=== PATIENT | male | born 1990 | race Two or more races ===

== ENCOUNTER 2016-06-08 21:54 | Emergency (ER) | payer SELFPAY ==
[~2016-06-08] VITALS: Ht 172.7 cm; Wt 93.0 kg
[~2016-06-08 21:54] MED LIST: ASPI325T70 PO; CEPH500C PO; CEPH500T PO; HYDR50TA PO; OXYC1TAB9 PO
[2016-06-08 22:38] LABS: BILIRUBIN,URINE NEGATIVE (NEG); GLUCOSE,URINE NEGATIVE (NEG); NITRITE,URINE NEGATIVE (NEG); PROTEIN,URINE NEGATIVE (NEG-TRACE); UROBILINOGEN,URINE 0.2 mg/dL (0.2 mg/dL)
[2016-06-08 22:49] LABS: BACTERIA,URINE 0 /HPF (0-FEW); RBC,URINE OCC /HPF (0-2); SQUAMOUS EPITHELIAL CELL,UR OCC /LPF; WBC,URINE 0 /HPF (0-4)
[2016-06-08 23:00] VITALS: BP 124/64
[2016-06-08] MEDS ORDERED: IBUP-1007 PO (23:34)
[2016-06-08] MEDS ORDERED: SULF1TAB24 PO (23:34)
--- NOTE | 2016-06-08 23:35 | PHYS DOC ---
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 Patient reports it has been intermittent in nature that increases whenever he moves or rotates his torso. Patient relates it secondary to a insect bite to his left upper back. Patient reports she's had pain and discomfort in that area and there is a red pustule noted in his left upper back. Patient denies any other past medical history. Patient has any hypertension diabetes liver longer kidney problems. Patient does smoke. Any medications. Patient has any fevers shakes chills nausea vomiting diarrhea chest pain or shortness of breath. Patient reports he does have difficulty with urination and he does have some dysuria. Patient denies any polyuria frequency. Patient has hematuria. Patient's physical exam is significant for tenderness to palpation to both lower flanks. Patient's reproducible pain with palpation as well as whenever he tries to sit up from the bed. Patient has pain with rotation of his torso patient is otherwise neurologically intact. Patient has no weaknesses upper or lower 70s. Patient has no loss of bowel or bladder function. Patient denies any perirectal or perineal paresthesias. This is a 25-year-old gentleman with likely mechanical back strain. Patient's urinalysis and a ER was negative for blood or infection. Patient be sent home with Bactrim to assist with coverage of the pustule and his left back as well as Motrin to assist him with his discomfort. Review of Systems Review of Systems Constitutional: Denies fever or chills [] Eyes: Denies change in visual acuity, redness, or eye pain [] HENT: Denies nasal congestion or sore throat [] All other review systems are negative except as documented in the history of present illness portion. Allergies Allergies Allergies Coded Allergies Type Severity Reaction Last Updated Verified No Known Drug Allergies 09/26/13 No Physical Exam Physical Exam Constitutional: Well developed, well nourished, no acute distress, non-toxic appearance. [] HENT: Normocephalic, atraumatic, bilateral external ears normal, oropharynx moist, no oral exudates, nose normal. [] Eyes: PERRLA, EOMI, conjunctiva normal, no discharge. [] Neck: Normal range of motion, no tenderness, supple, no stridor. [] Cardiovascular:Heart rate regular rhythm, no murmur [] Lungs & Thorax: Bilateral breath sounds clear to auscultation [] Abdomen: Bowel sounds normal, soft, no tenderness, no masses, no pulsatile masses. [] Skin: Warm, dry, no erythema, no rash. [] Extremities: No tenderness, no cyanosis, no clubbing, ROM intact, no edema. [] Neurologic: Alert and oriented X 3, normal motor function, normal sensory function, no focal deficits noted. [] Psychologic: Affect normal, judgement normal, mood normal. [] Current Patient Data Vital Signs Vital Signs Date Time Temp Pulse Resp B/P Pulse Ox O2 Delivery O2 Flow Rate FiO2 06/08/16 23:00 84 16 124/64 97 Room Air 06/08/16 22:00 98.4 98.4 Lab Values Laboratory Tests Test 06/08/16 22:20 Urine Collection Type Unknown Urine Color Yellow Urine Clarity Clear Urine pH 6.0 Urine Specific Shepherd >=1.030 Urine Protein Negativemg/dL (NEG-TRACE) Urine Glucose (UA) Negativemg/dL (NEG) Urine Ketones (Stick) Negativemg/dL (NEG) Urine Blood Negative (NEG) Urine Nitrite Negative (NEG) Urine Bilirubin Negative (NEG) Urine Urobilinogen Dipstick 0.2mg/dL (0.2 mg/dL) Urine Leukocyte Esterase Negative (NEG) Urine RBC Occ/HPF (0-2) Urine WBC 0/HPF (0-4) Urine Squamous Epithelial Cells Occ/LPF Urine Bacteria 0/HPF (0-FEW) Urine Hyaline Casts Occasional/HPF Urine Mucus Mod/LPF EKG EKG [] Radiology/Procedures Radiology/Procedures [] Course & Med Decision Making Course & Med Decision Making Pertinent Labs and Imaging studies reviewed. (See chart for details) [] Dragon Disclaimer Dragon Disclaimer This electronic medical record was generated, in whole or in part, using a voice recognition dictation system. Departure Departure Impression: Primary Impression: Back pain Additional Impressions: Insect bite Cellulitis Disposition: HOME, SELF-CARE Condition: IMPROVED Referrals: NO PCP (PCP) Patient Instructions: Back Pain, Adult, Cellulitis Scripts Ibuprofen 600 Mg [id number] Mg PO PRN Q6HRS PRN INFLAMMATION #20 TAB Prov:ROCCO JANE MD 06/08/16 Sulfamethoxazole/Trimethoprim (Bactrim Ds Tablet)1 Each Tablet2 Tab PO BID 10 Days Prov:ROCCO JANE MD 06/08/16 Problem Qualifiers ROCCO JANE MD Jun 08, 2016 23:34
== END 2016-06-08 23:40 | disposition home or self-care (01) ==
LOC: ER 21:54
DX: L03.312 Cellulitis of back [any part except buttock and flank] (principal); J45.909 Unspecified asthma, uncomplicated; I10 Essential (primary) hypertension; F12.10 Cannabis abuse, uncomplicated; R31.9 Hematuria, unspecified; R30.0 Dysuria
CPT/HCPCS: 81001; 99283

== ENCOUNTER 2018-09-11 01:19 | Emergency (ER) | payer SELFPAY ==
[~2018-09-11] VITALS: Ht 175.3 cm; Wt 108.9 kg
[~2018-09-11 01:19] MED LIST changes: +IBUP-1007 PO; +OXYC-411 PO; -OXYC1TAB9 PO; +SULF1TAB24 PO
[2018-09-11] MEDS ORDERED: IV NORMAL SALINE 1000ML BAG 1,000 ML IV ONE (02:00)
--- NOTE | 2018-09-11 03:10 | RAD ---
INDICATION: Trauma COMPARISON: None. TECHNIQUE: Axial CT images obtained through the head without intravenous contrast. One or more of the following individualized dose reduction techniques were utilized for this examination: 1. Automated exposure control; 2. Adjustment of the mA and/or kV according to patient size; 3. Use of iterative reconstruction technique. FINDINGS: No intracranial hemorrhage. No midline shift. Basal cisterns patent. Ventricles and sulci are unremarkable. No acute osseous abnormality. Orbits and paranasal sinuses unremarkable. IMPRESSION: 1. Some limitation near the skull base secondary to patient motion but no definite hemorrhage is seen. 2. Mild possible foci of low density of white matter. Nonspecific but can be seen with causes such as sequela of migraine or small foci of gliosis from chronic small vessel ischemic disease. Electronically signed by: Emerson Vaughan MD (09/11/2018 3:08 AM) [facility]
--- NOTE | 2018-09-11 03:19 | PHYS DOC ---
Past Medical History Past Medical History: Unknown Additional Past Medical Histor: rhabdo, BRAIN BLEED (SHAYAN SOTO DO) Past Surgical History: Other Additional Past Surgical Histo: RIGHT HAND, RIGHT ANKLE (SHAYAN SOTO DO) Alcohol Use: Heavy Drug Use: Marijuana Social History Narrative: UNKNOWN (SHAYAN SOTO DO) Adult General Chief Complaint Chief Complaint: ALCOHOL INTOXICATION HPI HPI 28-year-old male presents per EMS after he injured his head. He's been drinking. Apparently he was concerned that they will and [place] without him he ran under an overhang and hit his head on something open up a laceration. Patient is so intoxicated he is unable to provide any meaningful history.[] (SHAYAN SOTO DO) Review of Systems Review of Systems View of systems is unobtainable secondary to intoxication (SHAYAN SOTO DO) Current Medications Current Medications Current Medications Medications (Trade) Dose Ordered Sig/Wilbur Start Time Stop Time Status Last Admin Dose Admin Lorazepam (Ativan Inj) 1 mg 1X ONCE 09/11/18 02:00 09/11/18 02:01 DC 09/11/18 02:10 1 MG Sodium Chloride 1,000 ml @ 1,000 mls/hr 1X ONCE 09/11/18 02:00 09/11/18 02:59 DC 09/11/18 02:45 1,000 MLS/HR (MADELEINE MONTES DE OCA DO) Allergies Allergies Allergies Coded Allergies Type Severity Reaction Last Updated Verified No Known Drug Allergies 09/26/13 No (MADELEINE MONTES DE OCA DO) Physical Exam Physical Exam Constitutional: Highly intoxicated[] HENT: Normocephalic, atraumatic, bilateral external ears normal, oropharynx moist, no oral exudates, nose normal. [] Eyes: PERRLA, EOMI, conjunctiva normal, no discharge. [] Neck: Normal range of motion, no tenderness, supple, no stridor. [] Cardiovascular:Heart rate regular rhythm, no murmur [] Lungs & Thorax: Bilateral breath sounds clear to auscultation [] Abdomen: Bowel sounds normal, soft, no tenderness, no masses, no pulsatile masses. [] Skin: 4 cm laceration to the left anterior gallop. [] Back: No tenderness, no CVA tenderness. [] Extremities: No tenderness, no cyanosis, no clubbing, ROM intact, no edema. [] Neurologic: Alert and oriented X 3, normal motor function, normal sensory fu nction, no focal deficits noted. [] Psychologic: Agitated secondary to intoxication. [] (SHAYAN STOO DO) Current Patient Data Vital Signs Vital Signs Date Time Temp Pulse Resp B/P (MAP) Pulse Ox O2 Delivery O2 Flow Rate FiO2 09/11/18 06:06 78 17 96/58 (71) Room Air 09/11/18 02:36 98 09/11/18 01:40 97.5 97.5 (MADELEINE MONTES DE OCA DO) Lab Values Laboratory Tests Test 09/11/18 02:20 09/11/18 05:10 Urine Opiates Screen Neg (NEG) Urine Methadone Screen Neg (NEG) Urine Barbiturates Neg (NEG) Urine Phencyclidine Screen Neg (NEG) Urine Amphetamine/Methamphetamine Neg (NEG) Urine Benzodiazepines Screen Neg (NEG) Urine Cocaine Screen Neg (NEG) Urine Cannabinoids Screen Neg (NEG) Urine Ethyl Alcohol Pos (NEG) White Blood Count 8.2 x10^3/uL (4.0-11.0) Red Blood Count 4.91 x10^6/uL (4.30-5.70) Hemoglobin 14.6 g/dL (13.0-17.5) Hematocrit 43.6 % (39.0-53.0) Mean Corpuscular Volume 89 fL (79-100) Mean Corpuscular Hemoglobin 30 pg (25-35) Mean Corpuscular Hemoglobin Concent 34 g/dL (31-37) Red Cell Distribution Width 13.8 % (11.5-14.5) Platelet Count 264 x10^3/uL (140-400) Neutrophils (%) (Auto) 55 % (31-73) Lymphocytes (%) (Auto) 37 % (24-48) Monocytes (%) (Auto) 6 % (0-9) Eosinophils (%) (Auto) 1 % (0-3) Basophils (%) (Auto) 1 % (0-3) Neutrophils # (Auto) 4.5 x10^3uL (1.8-7.7) Lymphocytes # (Auto) 3.0 x10^3/uL (1.0-4.8) Monocytes # (Auto) 0.5 x10^3/uL (0.0-1.1) Eosinophils # (Auto) 0.0 x10^3/uL (0.0-0.7) Basophils # (Auto) 0.1 x10^3/uL (0.0-0.2) Sodium Level 145 mmol/L (136-145) Potassium Level 3.9 mmol/L (3.5-5.1) Chloride Level 108 mmol/L (98-107) H Carbon Dioxide Level 27 mmol/L (21-32) Anion Gap 10 (6-14) Blood Urea Nitrogen 12 mg/dL (8-26) Creatinine 1.0 mg/dL (0.7-1.3) Estimated GFR (Cockcroft-Gault) 89.6 BUN/Creatinine Ratio 12 (6-20) Glucose Level 86 mg/dL (70-99) Calcium Level 8.3 mg/dL (8.5-10.1) L Total Bilirubin 0.4 mg/dL (0.2-1.0) Aspartate Amino Transferase (AST) 21 U/L (15-37) Alanine Aminotransferase (ALT) 26 U/L (16-63) Alkaline Phosphatase 72 U/L (46-116) Total Protein 7.6 g/dL (6.4-8.2) Albumin 3.8 g/dL (3.4-5.0) Albumin/Globulin Ratio 1.0 (1.0-1.7) Ethyl Alcohol Level 205 mg/dL (0-10) H Laboratory Tests 09/11/18 05:10 Laboratory Tests 09/11/18 05:10 (MADELEINE MONTES DE OCA DO) Lab Values Laboratory Tests Test 09/11/18 02:20 09/11/18 05:10 Urine Opiates Screen Neg (NEG) Urine Methadone Screen Neg (NEG) Urine Barbiturates Neg (NEG) Urine Phencyclidine Screen Neg (NEG) Urine Amphetamine/Methamphetamine Neg (NEG) Urine Benzodiazepines Screen Neg (NEG) Urine Cocaine Screen Neg (NEG) Urine Cannabinoids Screen Neg (NEG) Urine Ethyl Alcohol Pos (NEG) White Blood Count 8.2 x10^3/uL (4.0-11.0) Red Blood Count 4.91 x10^6/uL (4.30-5.70) Hemoglobin 14.6 g/dL (13.0-17.5) Hematocrit 43.6 % (39.0-53.0) Mean Corpuscular Volume 89 fL (79-100) Mean Corpuscular Hemoglobin 30 pg (25-35) Mean Corpuscular Hemoglobin Concent 34 g/dL (31-37) Red Cell Distribution Width 13.8 % (11.5-14.5) Platelet Count 264 x10^3/uL (140-400) Neutrophils (%) (Auto) 55 % (31-73) Lymphocytes (%) (Auto) 37 % (24-48) Monocytes (%) (Auto) 6 % (0-9) Eosinophils (%) (Auto) 1 % (0-3) Basophils (%) (Auto) 1 % (0-3) Neutrophils # (Auto) 4.5 x10^3uL (1.8-7.7) Lymphocytes # (Auto) 3.0 x10^3/uL (1.0-4.8) Monocytes # (Auto) 0.5 x10^3/uL (0.0-1.1) Eosinophils # (Auto) 0.0 x10^3/uL (0.0-0.7) Basophils # (Auto) 0.1 x10^3/uL (0.0-0.2) Sodium Level 145 mmol/L (136-145) Potassium Level 3.9 mmol/L (3.5-5.1) Chloride Level 108 mmol/L (98-107) H Carbon Dioxide Level 27 mmol/L (21-32) Anion Gap 10 (6-14) Blood Urea Nitrogen 12 mg/dL (8-26) Creatinine 1.0 mg/dL (0.7-1.3) Estimated GFR (Cockcroft-Gault) 89.6 BUN/Creatinine Ratio 12 (6-20) Glucose Level 86 mg/dL (70-99) Calcium Level 8.3 mg/dL (8.5-10.1) L Total Bilirubin 0.4 mg/dL (0.2-1.0) Aspartate Amino Transferase (AST) 21 U/L (15-37) Alanine Aminotransferase (ALT) 26 U/L (16-63) Alkaline Phosphatase 72 U/L (46-116) Total Protein 7.6 g/dL (6.4-8.2) Albumin 3.8 g/dL (3.4-5.0) Albumin/Globulin Ratio 1.0 (1.0-1.7) Ethyl Alcohol Level 205 mg/dL (0-10) H Laboratory Tests 09/11/18 05:10 Laboratory Tests 09/11/18 05:10 (SHAYAN SOTO DO) EKG EKG [] (SHAYAN SOTO DO) Radiology/Procedures Radiology/Procedures [] (SHAYNA SOTO DO) Impressions: STATUS: REG ERORD. PHYSICIAN: SHAYAN SOTO DO REASON: trauma-PT UNCOOPERATIVE PROCEDURE: CT HEAD WO CONTRAST INDICATION: Trauma COMPARISON: None. TECHNIQUE: Axial CT images obtained through the head without intravenous contrast. One or more of the following individualized dose reduction techniques were utilized for this examination: 1. Automated exposure control; 2. Adjustment of the mA and/or kV according to patient size; 3. Use of iterative reconstruction technique. FINDINGS: No intracranial hemorrhage. No midline shift. Basal cisterns patent. Ventricles and sulci are unremarkable. No acute osseous abnormality. Orbits and paranasal sinuses unremarkable. IMPRESSION: 1. Some limitation near the skull base secondary to patient motion but no definite hemorrhage is seen. 2. Mild possible foci of low density of white matter. Nonspecific but can be seen with causes such as sequela of migraine or small foci of gliosis from chronic small vessel ischemic disease. (SHAYAN SOTO DO) Course & Med Decision Making Course & Med Decision Making Pertinent Labs and Imaging studies reviewed. (See chart for details) [Procedure: 4 cm scalp laceration repair The wound was irrigated with saline and scrubbed with Hibiclens there were no foreign bodies noted using 35 wide stapler 3 tova were placed with excellent approximation of the wound] (SHAYAN SOTO DO) Course & Med Decision Making Patient was awake, alert, able to walk by himself without any problem. Will discharge him home. He was provided a cab voucher. (MADELEINE MONTES DE OCA DO) Dragon Disclaimer Dragon Disclaimer This electronic medical record was generated, in whole or in part, using a voice recognition dictation system. (SHAYAN SOTO DO) Departure Departure Impression: Primary Impression: Scalp laceration Additional Impression: Alcohol intoxication Disposition: HOME, SELF-CARE Condition: STABLE Referrals: NO PCP (PCP) follow up with your doctor in 7 days for tova removal Patient Instructions: Alcohol Intoxication, Head Injury, Adult, Laceration Care, Adult Problem Qualifiers Primary Impression: Scalp laceration Encounter type: initial encounter Qualified Codes: S01.01XA - Laceration without foreign body of scalp, initial encounter Additional Impression: Alcohol intoxication Complication of substance-induced condition: uncomplicated Qualified Codes: F10.920 - Alcohol use, unspecified with intoxication, uncomplicated SHAYAN SOTO DO Sep 11, 2018 03:19 MADELEINE MONTES DE OCA DO Sep 11, 2018 07:07
[2018-09-11 05:09] LABS: AMPHETAMINE/METHAMPHETAMINE NEG (NEG); BARBITURATES NEG (NEG); BENZODIAZEPINES NEG (NEG); CANNABINOIDS NEG (NEG); COCAINE NEG (NEG); METHADONE NEG (NEG); OPIATES NEG (NEG); PHENCYCLIDINE NEG (NEG)
[2018-09-11 05:29] LABS: BASO # 0.1 x10^3/uL (0.0-0.2); BASO % 1 % (0-3); EOS % 1 % (0-3); HEMATOCRIT 43.6 % (39.0-53.0); HEMOGLOBIN 14.6 g/dL (13.0-17.5); LYMPH % 37 % (24-48); MEAN CORPUSCULAR HEMOGLOBIN 30 pg (25-35); MEAN CORPUSCULAR HGB CONC 34 g/dL (31-37); MEAN CORPUSCULAR VOLUME 89 fL (79-100); MONO # 0.5 x10^3/uL (0.0-1.1); MONO % 6 % (0-9); NEUT # 4.5 x10^3uL (1.8-7.7); NEUT % 55 % (31-73); PLATELET COUNT 264 x10^3/uL (140-400); RED BLOOD COUNT 4.91 x10^6/uL (4.30-5.70); RED CELL DISTRIBUTION WIDTH 13.8 % (11.5-14.5); WHITE BLOOD COUNT 8.2 x10^3/uL (4.0-11.0)
[2018-09-11 05:43] LABS: CALCIUM 8.3 mg/dL (8.5-10.1); GFR 89.6; POTASSIUM 3.9 mmol/L (3.5-5.1)
[2018-09-11 05:48] LABS: ALBUMIN 3.8 g/dL (3.4-5.0); TOTAL BILIRUBIN 0.4 mg/dL (0.2-1.0); TOTAL PROTEIN 7.6 g/dL (6.4-8.2)
[2018-09-11 07:14] VITALS: BP 119/62
== END 2018-09-11 07:18 | disposition home or self-care (01) ==
LOC: ER 01:19
DX: S01.01XA Laceration without foreign body of scalp, initial encounter (principal); F10.229 Alcohol dependence with intoxication, unspecified; Y90.7 Blood alcohol level of 200-239 mg/100 ml; W22.8XXA Striking against or struck by other objects, initial encounter; Y93.89 Activity, other specified; Y92.89 Other specified places as the place of occurrence of the external cause; Y99.8 Other external cause status
CPT/HCPCS: 12002; 36415; 70450; 80053; 80307; 85025; 96374; 99285; G0480; J2060; J7030